=== PATIENT | male | born 1985 | race Caucasian/White ===

== ENCOUNTER 2021-11-19 11:55 | Inpatient (IN) | payer OTHER ==
[~2021-11-19] VITALS: Ht 188 cm; Wt 99.8 kg
[2021-11-19 13:35] VITALS: BP 128/83
[2021-11-19 16:30] VITALS: BP 124/63
[2021-11-19] MEDS: LACOSAMIDE 100 MG TABLET PO SCH (20:43)
[2021-11-19] MEDS: APIXABAN 5 MG TABLET PO SCH (20:43)
[2021-11-19] MEDS: LevETIRAcetam 500 MG TABLET PO SCH (20:44)
[2021-11-19] MEDS: VALPROIC ACID 250 MG CAPSULE PO SCH (20:45)
[2021-11-19] MEDS ORDERED: VALPROIC ACID 250 MG CAPSULE PO SCH (21:00)
[2021-11-20 02:02] VITALS: BP 116/76
[2021-11-20] MEDS: ACETAMINOPHEN 325 MG TABLET PO PRN (02:02)
[2021-11-20] MEDS: LACOSAMIDE 100 MG TABLET PO SCH ×2 (07:54→20:17)
[2021-11-20] MEDS: LevETIRAcetam 500 MG TABLET PO SCH ×2 (07:55→20:18)
[2021-11-20] MEDS: APIXABAN 5 MG TABLET PO SCH ×2 (07:56→20:18)
[2021-11-20] MEDS: VALPROIC ACID 250 MG CAPSULE PO SCH ×2 (07:57→20:18)
[2021-11-20 09:24] VITALS: BP 128/91
[2021-11-20 09:36] LABS: BASOPHILS % (AUTO) 1.1 % (0.0-2.0); EOSINOPHILS % (AUTO) 2.3 % (1.0-6.0); HEMOGLOBIN 12.5 g/dL (13.5-17.5); LYMPHOCYTES # (AUTO) 2.1 K/uL (1.0-4.8); LYMPHOCYTES % (AUTO) 28.1 % (22.0-44.0); MEAN CORPUSCULAR HEMOGLOBIN 29.4 pg (26.0-34.0); MEAN CORPUSCULAR HGB CONC 33.9 G/dL (31.0-37.0); MEAN CORPUSCULAR VOLUME 87 fL (80-100); MONOCYTES # (AUTO) 0.8 K/uL (0.1-1.0); MONOCYTES % (AUTO) 10.3 % (2.0-9.0); NEUTROPHILS # (AUTO) 4.3 K/uL (1.8-7.7); NEUTROPHILS % (AUTO) 58.2 % (40.0-70.0); PLATELET COUNT (AUTO) 484 K/uL (150-450); RED BLOOD CELL COUNT(AUTO) 4.26 MIL/uL (4.50-5.90); RED CELL DISTRIBUTION WIDTH 14.5 % (11.5-14.5)
[2021-11-20 09:49] LABS: ALANINE AMINOTRANSFERASE 53 U/L (12-78); ALBUMIN 3.3 g/dL (3.4-5.0); ALKALINE PHOSPHATASE 60 U/L (46-116); ANION GAP 12 mmol/L (8-16); ASPARTATE AMINOTRANSFERASE 19 U/L (15-37); BILIRUBIN,TOTAL 0.2 mg/dL (0.1-1.0); CALCIUM, TOTAL 9.2 mg/dL (8.8-10.5); CARBON DIOXIDE 26 mmol/L (22-29); CHLORIDE 100 mmol/L (98-107); CREATININE 0.89 mg/dL (0.60-1.30); GLOMERULAR FILTR. RATE CALC > 60 mL/min (>60); GLUCOSE,RANDOM 97 mg/dL (70-110); POTASSIUM 4.4 mmol/L (3.5-5.1); SODIUM SERUM 138 mmol/L (136-145); TOTAL PROTEIN, SERUM 8.3 g/dL (6.4-8.2); UREA NITROGEN, BLOOD 13 mg/dL (7-18)
[2021-11-20 15:24] VITALS: BP 119/75
[2021-11-20] MEDS: ETHYL ALCOHOL 62% ANTISEPTIC NASAL INHALANT 0.6 ML AMPUL NASAL SCH (20:18)
[2021-11-21 02:00] VITALS: BP 129/81
[2021-11-21 08:00] VITALS: BP 138/86
[2021-11-21] MEDS: VALPROIC ACID 250 MG CAPSULE PO SCH ×2 (08:03→20:22)
[2021-11-21] MEDS: LACOSAMIDE 100 MG TABLET PO SCH ×2 (08:03→20:23)
[2021-11-21] MEDS: ACETAMINOPHEN 325 MG TABLET PO PRN ×2 (08:03→13:56)
[2021-11-21] MEDS: LevETIRAcetam 500 MG TABLET PO SCH ×2 (08:04→20:22)
[2021-11-21] MEDS: APIXABAN 5 MG TABLET PO SCH ×2 (08:04→20:23)
[2021-11-21] MEDS: ETHYL ALCOHOL 62% ANTISEPTIC NASAL INHALANT 0.6 ML AMPUL NASAL SCH ×2 (08:05→20:22)
[2021-11-21 16:10] VITALS: BP 139/89
[2021-11-22 04:20] VITALS: BP 143/93
[2021-11-22] MEDS: ACETAMINOPHEN 325 MG TABLET PO PRN (04:20)
[2021-11-22] MEDS: ETHYL ALCOHOL 62% ANTISEPTIC NASAL INHALANT 0.6 ML AMPUL NASAL SCH ×2 (07:58→20:25)
[2021-11-22] MEDS: LevETIRAcetam 500 MG TABLET PO SCH ×2 (07:59→20:25)
[2021-11-22] MEDS: LACOSAMIDE 100 MG TABLET PO SCH ×2 (07:59→20:25)
[2021-11-22] MEDS: APIXABAN 5 MG TABLET PO SCH ×2 (07:59→20:25)
[2021-11-22] MEDS: VALPROIC ACID 250 MG CAPSULE PO SCH ×2 (07:59→20:25)
[2021-11-22 08:26] VITALS: BP 131/79
[2021-11-22 16:05] VITALS: BP 129/81
[2021-11-23 02:07] VITALS: BP 137/81
[2021-11-23] MEDS: ACETAMINOPHEN 325 MG TABLET PO PRN ×2 (02:07→08:06)
[2021-11-23] MEDS: LevETIRAcetam 500 MG TABLET PO SCH ×2 (08:05→20:14)
[2021-11-23] MEDS: ETHYL ALCOHOL 62% ANTISEPTIC NASAL INHALANT 0.6 ML AMPUL NASAL SCH ×2 (08:05→20:13)
[2021-11-23] MEDS: APIXABAN 5 MG TABLET PO SCH ×2 (08:05→20:14)
[2021-11-23] MEDS: LACOSAMIDE 100 MG TABLET PO SCH ×2 (08:05→20:14)
[2021-11-23 08:06] VITALS: BP 135/88
[2021-11-23] MEDS: VALPROIC ACID 250 MG CAPSULE PO SCH ×2 (08:06→20:14)
[2021-11-23 16:25] VITALS: BP 130/81
[2021-11-24] VITALS: BP 120/71
[2021-11-24] MEDS: ETHYL ALCOHOL 62% ANTISEPTIC NASAL INHALANT 0.6 ML AMPUL NASAL SCH ×2 (07:56→20:23)
[2021-11-24] MEDS: APIXABAN 5 MG TABLET PO SCH ×2 (07:56→20:23)
[2021-11-24] MEDS: VALPROIC ACID 250 MG CAPSULE PO SCH ×2 (07:57→20:23)
[2021-11-24] MEDS: LevETIRAcetam 500 MG TABLET PO SCH ×2 (07:58→20:23)
[2021-11-24] MEDS: LACOSAMIDE 100 MG TABLET PO SCH ×2 (07:58→20:24)
[2021-11-24 08:05] VITALS: BP 132/79
[2021-11-24] MEDS: ACETAMINOPHEN 325 MG TABLET PO PRN (15:07)
[2021-11-24 15:08] VITALS: BP 136/89
[2021-11-25 03:15] VITALS: BP 139/84
[2021-11-25] MEDS: VALPROIC ACID 250 MG CAPSULE PO SCH ×2 (07:45→20:05)
[2021-11-25] MEDS: ACETAMINOPHEN 325 MG TABLET PO PRN (07:45)
[2021-11-25] MEDS: APIXABAN 5 MG TABLET PO SCH ×2 (07:46→20:05)
[2021-11-25] MEDS: LACOSAMIDE 100 MG TABLET PO SCH ×2 (07:46→20:05)
[2021-11-25] MEDS: LevETIRAcetam 500 MG TABLET PO SCH ×2 (07:46→20:05)
[2021-11-25] MEDS: ETHYL ALCOHOL 62% ANTISEPTIC NASAL INHALANT 0.6 ML AMPUL NASAL SCH ×2 (07:46→20:04)
[2021-11-25 08:00] VITALS: BP 135/95
[2021-11-25 15:43] VITALS: BP 140/83
[2021-11-26 02:48] VITALS: BP 131/76
[2021-11-26] MEDS: APIXABAN 5 MG TABLET PO SCH ×2 (07:49→20:31)
[2021-11-26] MEDS: LACOSAMIDE 100 MG TABLET PO SCH ×2 (07:49→20:31)
[2021-11-26] MEDS: LevETIRAcetam 500 MG TABLET PO SCH ×2 (07:49→20:31)
[2021-11-26] MEDS: VALPROIC ACID 250 MG CAPSULE PO SCH ×2 (07:49→20:31)
[2021-11-26 08:00] VITALS: BP 133/81
[2021-11-26] MEDS: ETHYL ALCOHOL 62% ANTISEPTIC NASAL INHALANT 0.6 ML AMPUL NASAL SCH ×2 (10:14→20:31)
[2021-11-26] MEDS: ACETAMINOPHEN 325 MG TABLET PO PRN (10:14)
[2021-11-26] MEDS ORDERED: LEVE500T8 PO (11:31)
[2021-11-26] MEDS ORDERED: LACO100 PO (11:31)
[2021-11-26] MEDS ORDERED: VALP250C48 PO (11:31)
[2021-11-26] MEDS ORDERED: APIX5TAB PO (11:31)
[2021-11-26] MEDS ORDERED: ACET325T51 PO (11:31)
[2021-11-26] MEDS: TROLAMINE SALICYLATE/ALOE VERA 10% 85 GM CREAM TP SCH ×2 (11:59→20:31)
[2021-11-26 15:49] VITALS: BP 138/81
[2021-11-27 01:00] VITALS: BP 132/72
[2021-11-27] MEDS: TROLAMINE SALICYLATE/ALOE VERA 10% 85 GM CREAM TP SCH (08:07)
[2021-11-27] MEDS: ETHYL ALCOHOL 62% ANTISEPTIC NASAL INHALANT 0.6 ML AMPUL NASAL SCH (08:07)
[2021-11-27] MEDS: VALPROIC ACID 250 MG CAPSULE PO SCH (08:08)
[2021-11-27] MEDS: APIXABAN 5 MG TABLET PO SCH (08:08)
[2021-11-27] MEDS: LevETIRAcetam 500 MG TABLET PO SCH (08:09)
[2021-11-27 08:44] VITALS: BP 143/80
[2021-11-27] MEDS: LACOSAMIDE 100 MG TABLET PO SCH (09:04)
== END 2021-11-27 11:00 | disposition home or self-care (01) | DRG 70 ==
LOC: 2WR 13:25
PROVIDERS: ADMIT Physical Medicine & Rehabilitation; ATTEND Physical Medicine & Rehabilitation
DX: G93.9 Disorder of brain, unspecified (principal); G04.90 Encephalitis and encephalomyelitis, unspecified; I26.99 Other pulmonary embolism without acute cor pulmonale; I10 Essential (primary) hypertension; G40.909 Epilepsy, unspecified, not intractable, without status epilepticus; R13.12 Dysphagia, oropharyngeal phase; R49.0 Dysphonia; G31.84 Mild cognitive impairment of uncertain or unknown etiology; D64.9 Anemia, unspecified; Z79.01 Long term (current) use of anticoagulants; Z86.16 Personal history of COVID-19
CPT/HCPCS: 80053; 80164; 85025; 87081; 92507; 92523; 97110; 97112; 97116; 97140; 97162; 97166; 97530; 97535; 99366; G0482

== ENCOUNTER → 2023-06-20 | Outpatient (CLI) | payer OTHER ==
[~2023-06-20] MED LIST: ACET325T51 PO; APIX5TAB PO; LACO100 PO; LEVE500T8 PO; VALP250C48 PO
== END | disposition home or self-care (01) ==
LOC: RADMN 12:23
PROVIDERS: ATTEND Chiropractor
DX: M84.411A Pathological fracture, right shoulder, initial encounter for fracture (principal)
CPT/HCPCS: 73000-TC